=== PATIENT | male | born 1995 | race American Indian/Alaskan Native ===

== ENCOUNTER 2016-09-25 08:32 | Emergency (ER) | payer OTHER ==
--- NOTE | 2016-09-25 09:26 | XRay Report ---
Chest 2 views: Compared to 04/01/15. History: Chest pain. Findings: Normal cardiomediastinal silhouette. Trachea is midline. No consolidation, pneumothorax or pleural effusion. Impression: No acute cardiopulmonary findings.
[2016-09-25 09:30] LABS: Basophils % (Auto) 0.8 % (0.0-1.8); Eosinophils % (Auto) 2.6 % (0.0-4.3); Hemoglobin 15.5 gm/dl (11.8-15.2); Mean Corpuscular HGB Conc 33 % (32-34); Mean Corpuscular Hemoglobin 28 pg (28-32); Mean Corpuscular Volume 84 fl (84-94); Platelet Count 240 K/mm3 (140-440); Red Blood Count 5.62 M/mm3 (3.65-5.03); Red Cell Distribution Width 12.9 % (13.2-15.2); White Blood Count 4.5 K/mm3 (4.5-11.0)
[2016-09-25 09:50] LABS: Anion Gap 17 mmol/L; Blood Urea Nitrogen 12 mg/dL (9-20); Calcium 9.8 mg/dL (8.4-10.2); Carbon Dioxide 29 mmol/L (22-30); Chloride 101.8 mmol/L (98-107); Glucose 90 mg/dL (75-100); Potassium 5.2 mmol/L (3.6-5.0); Sodium 143 mmol/L (137-145)
[2016-09-25] MEDS ORDERED: NACL 0.9% 1000 ML 1,000 ML IV ONE (10:53)
[2016-09-25] MEDS ORDERED: NACL 0.9% 500 ML 500 ML IV ONE (10:54)
--- NOTE | 2016-09-25 10:59 | Emergency Department Report ---
HPI - General Chief Complaint: Chest Pain Time Seen by Provider: 09/25/16 10:29 - HPI HPI: The patient is a 21-year-old male with a history of dilated cardiomyopathy, who presents for evaluation of chest pain. He reports on and off chest pain for the past 3 days, most recently last night, midsternal in location, tightness like in quality, 5/10 in severity, exacerbated with movement of the chest or arms bilaterally. The patient denies fever, trauma to the chest wall, parasthesias, dyspnea, hemoptysis, dizziness, syncope, unilateral leg swelling, calf muscle pain, cocaine or other stimulant use, history of DVT or PE, recent immobilization, history of cancer, or history of sudden cardiac in family members. ED Past Medical Hx - Past Medical History Previous Medical History?: Yes Additional medical history: Enlarged heart - Surgical History Past Surgical History?: No - Social History Smoking Status: Never Smoker Substance Use Type: None - Medications Home Medications: Home Medications Medication Instructions Recorded Confirmed Last Taken Type Ibuprofen [Motrin 600 MG tab] 600 mg PO Q8H PRN #30 tablet 03/03/16 Unknown Rx Cyclobenzaprine HCl [Flexeril 5 MG 5 mg PO Q8HR PRN #15 tab 09/25/16 Unknown Rx TAB] ED Review of Systems ROS: Stated complaint: PALPITATIONS Other details as noted in HPI Constitutional: denies: fever ENT: denies: throat or neck pain Respiratory: denies: cough, shortness of breath Cardiovascular: reports chest pain Endocrine: denies unexplained weight loss or gain Gastrointestinal: denies: abdominal pain, nausea Genitourinary: denies: dysuria Musculoskeletal: denies: leg swelling Skin: denies: rash Neurological: denies: headache Hematological/Lymphatic: denies: easy bleeding or easy bruising Psych: denies sadness or hopelessness Physical Exam - Physical Exam Vital Signs: Vital Signs 09/25/16 09/25/16 09/25/16 08:46 08:50 10:37 Temperature 97.9 F Pulse Rate 63 75 Respiratory 14 14 16 Rate Blood Pressure 130/71 Blood Pressure 129/81 [Right] O2 Sat by Pulse 100 99 Oximetry Physical Exam: General: well-nourished, well-developed, no acute distress Head: Normocephalic, atraumatic Eyes: normal sclera ENT: Mucous membranes are pale and dry Neck: trachea midline, neck supple, No neck stiffness, no cervical adenopathy Respiratory: Breath sounds equal bilaterally, no wheezing, rales, or rhonchi Cardio: S1 and S2 present, no murmurs, rubs, gallops, capillary refill is delayed Abdomen: Normoactive bowel sounds, soft abdomen, no rigidity, no guarding or rebound tenderness Musc: No pitting edema Skin: No rash Neuro: no facial drooping, normal speech Psych: Normal affect ED Course Vital Signs 09/25/16 09/25/16 09/25/16 08:46 08:50 10:37 Temperature 97.9 F Pulse Rate 63 75 Respiratory 14 14 16 Rate Blood Pressure 130/71 Blood Pressure 129/81 [Right] O2 Sat by Pulse 100 99 Oximetry ED Medical Decision Making - Lab Data Result diagrams: 09/25/16 09:13 09/25/16 09:13 - Medical Decision Making The patient was seen and examined by myself. The patient is placed on a clinical research monitor and continuous pulse ox. On initial evaluation, the patient was found to be in no distress. Evaluation orders were placed. X-ray of the chest is unremarkable. EKG is unremarkable. The patient refuses IV Toradol for his pain. The patient is given 1 L normal saline fluid bolus for treatment of dehydration. Lab results reveal elevated rbc, hemoglobin and hematocrit, consistent with hemoconcentration and exam findings of dehydration, and otherwise labs were grossly unremarkable. Medical records are reviewed and revealed that the patient received a stress test negative for any ischemic changes a little over one year ago. The patient was reevaluated and reported that their symptoms were markedly improved. The patient is stable for discharge with outpatient follow-up. The patient is given follow-up and return instructions. The patient expressed understanding and agreed with the plan. The patient is discharged in stable condition. Critical care attestation.: If time is entered above; I have spent that time in minutes in the direct care of this critically ill patient, excluding procedure time. ED Disposition Clinical Impression: Dehydration, Acute chest pain Disposition: DISCHARGED TO HOME OR SELFCARE Is pt being admited?: No Does the pt Need Aspirin: No Condition: Stable Instructions: Chest Pain (ED), Dehydration (ED) Prescriptions: Cyclobenzaprine HCl [Flexeril 5 MG TAB] 5 mg PO Q8HR PRN #15 tab PRN Reason: Pain Referrals: PRIMARY CARE, [Primary Care Provider] - 3-5 Days Time of Disposition: 10:55
[2016-09-25] MEDS ORDERED: TORADOL IV ONE (11:00)
[2016-09-25 11:52] VITALS: BP 128/73
== END 2016-09-25 11:53 | disposition home or self-care (01) ==
LOC: ED 08:32
DX: E86.0 Dehydration (principal); E07.9 Disorder of thyroid, unspecified
CPT/HCPCS: 36415; 71020; 80048; 84484; 85025; 93005; 93010; 99285; J7040; J1885

== ENCOUNTER 2017-05-02 19:02 | Emergency (ER) | payer OTHER ==
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
[2017-05-02] MEDS ORDERED: XYLOCAINE 2% INFILTRATI ONE ×2 (20:27→21:41)
[2017-05-02] MEDS ORDERED: NACL 0.9% 500 ML IR ONE (20:27)
[2017-05-02] MEDS ORDERED: TENIVAC IM ONE (21:12)
[2017-05-02] MEDS ORDERED: NACL 0.9% IR ONE (21:41)
[2017-05-02 22:05] VITALS: BP 120/75
== END 2017-05-02 22:05 | disposition home or self-care (01) ==
LOC: ED 19:02
DX: S01.81XA Laceration without foreign body of other part of head, initial encounter (principal); X58.XXXA Exposure to other specified factors, initial encounter; Y93.89 Activity, other specified; Y92.89 Other specified places as the place of occurrence of the external cause; Y99.8 Other external cause status
CPT/HCPCS: 90714; 99282

== ENCOUNTER 2017-05-08 01:18 | Emergency (ER) | payer OTHER ==
[2017-05-08 01:27] VITALS: BP 134/72
[2017-05-08] MEDS ORDERED: XYLOCAINE 2%/EPI 1:100,000 INFILTRATI ONE (01:33)
[2017-05-08] MEDS ORDERED: HYDROGEN PEROXIDE ONE (02:23)
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
[2017-05-08] MEDS ORDERED: HYDROGEN PEROXIDE TP ONE (05:04)
== END 2017-05-08 04:12 | disposition home or self-care (01) ==
LOC: ED 01:18
DX: L03.211 Cellulitis of face (principal)
CPT/HCPCS: 99282